=== PATIENT | male | born 1980 | race Caucasian/White ===

== ENCOUNTER 2020-06-25 22:04 | Emergency (ER) | payer OTHER ==
[~2020-06-25] VITALS: Ht 188 cm; Wt 95.7 kg
[2020-06-25] MEDS ORDERED: EPINEPHRINE 1 MG/1 ML AMP SQ ONE (22:15)
[2020-06-25] MEDS ORDERED: FAMOTIDINE. 20 MG/2 ML VIAL IV ONE ×2 (22:15→22:23)
[2020-06-25] MEDS ORDERED: diphenhydrAMINE 50 MG/1 ML VIAL IV ONE (22:15)
[2020-06-25] MEDS ORDERED: methylPREDNISolone SOD SUCC 125 MG/2 ML VIAL IV ONE (22:15)
[2020-06-25] MEDS ORDERED: IV NORMAL SALINE 1000 ML BAG IV ONE (22:15)
[2020-06-25] MEDS ORDERED: EPINEPHRINE 1 MG/1 ML AMP ONE (22:20)
[2020-06-25] MEDS ORDERED: ALBU8.5H8 IH (22:21)
[2020-06-25] MEDS ORDERED: methylPREDNISolone SOD SUCC 125 MG/2 ML VIAL ONE (22:24)
[2020-06-25] MEDS ORDERED: diphenhydrAMINE 50 MG/1 ML VIAL ONE (22:24)
[2020-06-25 22:53] LABS: BASOPHILS % (AUTO) 0.5 % (0.0-2.0); EOSINOPHILS # (AUTO) 0.2 K/uL (0.0-0.7); EOSINOPHILS % (AUTO) 2.9 % (0.0-7.0); HEMATOCRIT 39.6 % (36.7-47.1); HEMOGLOBIN 13.7 g/dL (12.5-16.3); LYMPHOCYTES # (AUTO) 3.1 K/uL (20.0-40.0); LYMPHOCYTES % (AUTO) 38.3 % (20.5-51.5); MEAN CORPUSCULAR HEMOGLOBIN 32.5 uug (23.8-33.4); MEAN CORPUSCULAR HGB CONC 35 g/dL (32.5-36.3); MONOCYTES # (AUTO) 0.6 K/uL (2.0-10.0); MONOCYTES % (AUTO) 7.2 % (0.0-11.0); NEUTROPHILS # (AUTO) 4.1 K/uL (1.8-8.9); NEUTROPHILS % (AUTO) 51.1 % (38.5-71.5); PLATELET COUNT (AUTO) 206 K/uL (152-348); RED BLOOD CELL COUNT(AUTO) 4.21 MIL/uL (4.06-5.63)
[2020-06-25 23:07] LABS: BILIRUBIN,DIRECT 0.1 mg/dL (0.0-0.2); BILIRUBIN,TOTAL 0.5 mg/dL (0.2-1.0); POTASSIUM 3.4 mmol/L (3.5-5.1); TOTAL PROTEIN, SERUM 6.4 g/dL (6.4-8.2)
--- NOTE | 2020-06-26 00:10 | NUR ---
Pt. admitted to CCU, under care of Dariana Sears. Diagnosis: Anaphylaxis Belongs List completed. MRSA swab done
[2020-06-26] MEDS ORDERED: BUPR-319 PO (00:38)
[2020-06-26] MEDS ORDERED: HYDROCODONE/APAP 5-325MG TABLET PO PRN (00:45)
[2020-06-26] MEDS ORDERED: MAGNESIUM HYDROXIDE 30 ML LIQUID UDC PO PRN (00:45)
[2020-06-26] MEDS ORDERED: IV NS 1000 ML 1,000 ML IV PRN (00:45)
[2020-06-26] MEDS ORDERED: ACETAMINOPHEN 325 MG TABLET PO PRN (00:45)
[2020-06-26] MEDS ORDERED: ONDANSETRON 4 MG/2 ML VIAL IV PRN (00:45)
[2020-06-26] MEDS ORDERED: POTASSIUM CHLORIDE 20 MEQ POWDER PACKET PO ONE (00:45)
--- NOTE | 2020-06-26 01:24 | NUR ---
Pt. refusing to be admitted to CCU. Dr. Berrios at bedside. Per Yash Marks, cancel admission to CCU. Dr. Berrios will notify Dariana Sears. Patient will be under ER observation.
[2020-06-26] MEDS ORDERED: PRED20TA PO (03:56)
[2020-06-26] MEDS ORDERED: DIPH25CA83 PO (03:56)
[2020-06-26] MEDS ORDERED: EPIN0.3A4 IM (03:56)
--- NOTE | 2020-06-26 04:00 | NUR ---
IV removed. Catheter intact and site benign. Pressure and 4x4 gauze applied to site. No bleeding noted.
--- NOTE | 2020-06-26 04:04 | NUR ---
Patient discharged to home in stable condition. Written and verbal after care instructions given. Patient verbalizes understanding of instructions. Stressed follow up or return to ER for worsening s/s. Vss.
[2020-06-26 04:14] VITALS: BP 119/73
[2020-06-26] MEDS ORDERED: methylPREDNISolone SOD SUCC 40 MG/ML VIAL IV ONE (06:00)
[2020-06-26] MEDS ORDERED: FAMOTIDINE. 20 MG/2 ML VIAL IV ONE (06:00)
[2020-06-26] MEDS ORDERED: diphenhydrAMINE 50 MG/1 ML VIAL IV ONE (06:00)
== END 2020-06-26 04:10 | disposition home or self-care (01) ==
LOC: ER 22:07 → CCU 06-26 00:12 → UNDOADMIN 06-26 00:12 → ER 06-26 04:10
DX: T78.05XA Anaphylactic reaction due to tree nuts and seeds, initial encounter (principal); K12.2 Cellulitis and abscess of mouth; J45.909 Unspecified asthma, uncomplicated; E87.6 Hypokalemia; Z20.822 Contact with and (suspected) exposure to COVID-19; F32.9 Major depressive disorder, single episode, unspecified
CPT/HCPCS: 36415; 80048; 80076; 85025; 87426; 96372; 96374; 96375; 99291; J0171; J1200; J2930; J3490; A4663; J7030